=== PATIENT | female | born 1990 | race Caucasian/White ===

== ENCOUNTER 2020-07-19 11:19 | Emergency (ER) | payer BC, SELFPAY ==
--- NOTE | 2020-07-19 11:34 | ED.URI ---
HPI - URI/Sore Throat General Chief Complaint: Upper Respiratory Infection Stated Complaint: SORE THROAT/COUGH/FEVER Time Seen by Provider: 07/19/20 11:34 Source: patient and RN notes reviewed Mode of arrival: ambulatory Limitations: no limitations History of Present Illness HPI Narrative: 30-year-old female presents with concern for sore throat, scratchy throat, nasal drainage, cough, fever. Reports sore throat started 2 days ago, cough started today. 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 She denies any loss of sense of taste or smell, shortness of breath, body aches, chills, sweats. Reports exposure to a Covid patient last week. MD elicited complaint: sore throat Related Data Home Medications Medication Instructions Recorded Confirmed aripiprazole mg 07/19/20 dextroamphetamine-amphetamine PO 07/19/20 losartan 07/19/20 omeprazole 07/19/20 Allergies Allergy/AdvReac Type Severity Reaction Status Date / Time morphine Allergy Unknown Vomiting Verified 06/21/15 11:04 Review of Systems Review of Systems: Narrative: CONSTITUTIONAL: Denies malaise, chills, sweats. Reports fever. EYES: Denies visual changes, redness, or discharge. ENT: Reports rhinorrhea, sore throat. Denies congestion, sinus pain, otalgia CARDIOVASCULAR: Denies chest pain, palpitations, or edema. RESPIRATORY: Reports cough. Denies dyspnea. GASTROINTESTINAL: Denies abdominal pain, nausea, vomiting, diarrhea SKIN: Denies rash or itching. MUSCULOSKELETAL: Denies myalgia. NEUROLOGIC: Denies headache. All systems reviewed & are unremarkable except as noted in HPI and below PMFSH Family History Family History (Updated 11/10/15 @ 23:21 by DOCTOR UNKNOWN) Mother Patient's mother is in good health Father Patient's father is in good health Sibling Patient's brother is in good health Other Diabetes mellitus Hypertension Social History Social History Smoking status: Current every day smoker Second hand tobacco smoke exposure: No Smoking end date: 07/19/13 Alcohol intake: never Comments At time of signature, agree with nursing past medical, surgical, social and family history. There is no relevant family history pertinent to the presenting complaint Exam Narrative: Exam Narrative: GENERAL: Well-appearing, well-nourished, and in no acute distress. HEAD: Normocephalic EYES: PERRLA, conjunctivae clear ENT: Nares clear, turbinates erythematous, clear discharge. Mucous membranes moist. TM pearly dugan with sharp light reflex bilaterally; no tragal tenderness. Oropharynx not erythematous without lesions. Tonsils not enlarged and without exudate, no drooling, no hoarseness, no trismus, uvula midline. NECK: Supple. No lymphadenopathy CHEST: Clear to auscultation, breath sounds equal. No wheezing, rhonchi, rales, or stridor. No respiratory distress, speaks in full sentences. HEART: Regular rate and rhythm. No murmur heard. SKIN: Warm, dry, no rash. NEURO: Alert and oriented x3. PSYCH: Normal mood and affect Course Course Emergency Course: Patient is aware of diagnosis, understands and agrees to treatment plan. Anticipatory guidance given. Patient agrees to follow-up as directed and is aware of reasons to seek care at the emergency department. Portions of this record may have been created with voice recognition software Vital Signs Vital signs: Vital Signs Temperature 98.5 F 07/19/20 11:36 Pulse Rate 108 H 07/19/20 11:36 Respiratory Rate 16 07/19/20 11:36 Blood Pressure 128/85 07/19/20 11:36 Pulse Oximetry 99 07/19/20 11:36 Temperature 98.5 F 07/19/20 11:36 Pulse Rate 108 H 07/19/20 11:36 Respiratory Rate 16 07/19/20 11:36 Blood Pressure 128/85 07/19/20 11:36 Pulse Oximetry 99 07/19/20 11:36 Reviewed. Patient has been instructed to follow up with her primary care provider within the next week regarding her elevated blood pressure today. MDM - URI/Sore Throat MDM
[2020-07-19 11:36] VITALS: BP 128/85; PULSE 108; RESP 16; TEMP 36.9; O2SAT 99
== END 2020-07-19 12:01 | disposition home or self-care (01) ==
PROVIDERS: Emergency Provider Nurse Practitioner; PCP Family Medicine
DX: U07.1 COVID-19 (principal); F17.210 Nicotine dependence, cigarettes, uncomplicated; I10 Essential (primary) hypertension
CPT/HCPCS: 87081; 87426; 87880; 99213; C9803; G0463

== ENCOUNTER 2022-03-12 02:54 | Emergency (ER) | payer SELFPAY ==
[2022-03-12 03:10] VITALS: BP 149/99; PULSE 92; RESP 18; TEMP 36.2; O2SAT 99
[2022-03-12 04:05] VITALS: BP 132/93; PULSE 83; RESP 16; O2SAT 99
[2022-03-12 05:02] VITALS: BP 125/73; PULSE 75; RESP 14; O2SAT 99
--- NOTE | 2022-03-12 05:13 | ED.RECABL ---
HPI - Recheck/Abnormal Lab/Rx General Chief Complaint: Recheck/Abnormal Lab/Rx Stated Complaint: Elevated BP, 9 weeks preg Time Seen by Provider: 03/12/22 04:56 History of Present Illness HPI narrative: This is a 32-year-old female G3, P2, 9 weeks who presents to the emergency department complaining of headache and elevated blood pressure. Patient states she was at work when she noticed a dull headache. She measured her blood pressure and it was 160s over 70s. She states she took her nifedipine as prescribed and presents for evaluation. She currently states her headache is resolved Related Data Home Medications Medication Instructions Recorded Confirmed aripiprazole 5 mg tablet mg 07/19/20 12/12/20 dextroamphetamine-amphetamine ER PO 07/19/20 12/12/20 15 mg 24hr capsule,extend release losartan 25 mg tablet 07/19/20 12/12/20 omeprazole 20 mg capsule,delayed 07/19/20 12/12/20 release alprazolam 0.5 mg tablet 0.5 mg PO QHS PRN 12/12/20 12/12/20 aripiprazole 5 mg tablet (Abilify) 5 mg PO QHS 12/12/20 12/12/20 dextroamphetamine-amphetamine 10 10 mg PO DAILY 12/12/20 12/12/20 mg tablet dextroamphetamine-amphetamine 10 10 mg PO DAILY 12/12/20 12/12/20 mg tablet (Adderall) dextroamphetamine-amphetamine ER 15 mg PO DAILY 12/12/20 12/12/20 15 mg 24hr capsule,extend release (Adderall XR) divalproex 250 mg tablet,delayed 250 mg PO Q12H 12/12/20 12/12/20 release (Depakote) divalproex 250 mg tablet,extended PO 12/12/20 12/12/20 release 24 hr omeprazole 20 mg capsule,delayed 20 mg PO DAILY 12/12/20 12/12/20 release Allergies Allergy/AdvReac Type Severity Reaction Status Date / Time morphine Allergy Unknown Vomiting Verified 12/12/20 14:12 Review of Systems Review of Systems: CONSTITUTIONAL: Denies fever, chills, or sweats. EYES: Denies visual changes, redness, or discharge. ENT: Denies rhinorrhea, congestion, sore throat, or otalgia. CARDIOVASCULAR: Denies chest pain, palpitations, or edema. RESPIRATORY: Denies cough or dyspnea. GASTROINTESTINAL: Denies abdominal pain, nausea, vomiting, or diarrhea. GENITOURINARY: Denies dysuria or hematuria. SKIN: Denies rash or itching. MUSCULOSKELETAL: Denies back pain, joint pain, or myalgia. NEUROLOGIC: Headache denies numbness, dizziness, or weakness. PSYCHIATRIC: Denies anxiety or depression. [facility] Past Medical History Medical History (Updated 03/12/22 @ 05:17 by Savage Lazaro MD) GERD (gastroesophageal reflux disease) Hypertension affecting Obese Preeclampsia Family History Family History Mother Patient's mother is in good health Father Patient's father is in good health Sibling Patient's brother is in good health Other Diabetes mellitus Hypertension Social History Social History Smoking status: Current every day smoker Second hand tobacco smoke exposure: No Smoking end date: 07/19/13 Alcohol intake: never Exam Narrative: GENERAL: Well-developed, well-nourished, and in no acute distress. HEAD: Normocephalic, atraumatic. EYES: PERRLA and EOMI. ENT: Nares clear, no rhinorrhea or epistaxis. Mucous membranes moist. Oropharynx without tonsillar hypertrophy exudate or other lesions. NECK: Supple. No adenopathy or masses. No carotid bruits or JVD CHEST: Clear to auscultation. No respiratory distress. No wheezes rales or rhonchi HEART: Regular rate and rhythm. No murmur heard. Normal peripheral pulses. ABDOMEN: Soft, nontender, nondistended, normal active bowel sounds. EXTREMITIES: Normal range of motion. No edema. SKIN: Warm, dry, no rash. NEURO: No focal deficits. Alert and oriented x3. PSYCH: Normal mood and affect. Course Course Emergency Course: 05:10 - Bedside ultrasound shows an intrauterine without free abdominal fluid. Patient's blood pressure at this time is controll
== END 2022-03-12 05:21 | disposition home or self-care (01) ==
PROVIDERS: Emergency Provider Preventive Medicine Aerospace Medicine; PCP Family Medicine
DX: O13.1 Gestational [pregnancy-induced] hypertension without significant proteinuria, first trimester (principal); O99.891 Other specified diseases and conditions complicating pregnancy; R51.9 Headache, unspecified; O99.611 Diseases of the digestive system complicating pregnancy, first trimester; K21.9 Gastro-esophageal reflux disease without esophagitis; O99.211 Obesity complicating pregnancy, first trimester; E66.9 Obesity, unspecified; Z3A.09 9 weeks gestation of pregnancy; Z87.891 Personal history of nicotine dependence
CPT/HCPCS: 99281

== ENCOUNTER 2022-04-12 17:07 | Observation (INO) | payer OTHER, SELFPAY ==
[2022-04-12] MEDS: DEXTROSE 5%/LACTATED RINGERS 1,000 ML 999 ML IV CONT (17:36)
[2022-04-12] MEDS: LOPERAMIDE HCL 2 MG CAPSULE PO (17:39)
[2022-04-12] MEDS: ONDANSETRON INJ 4 MG/2 ML VIAL IV PUSH (17:39)
[2022-04-12 17:43] VITALS: BP 113/66; PULSE 81; BMI 36.3
--- NOTE | 2022-04-12 17:43 | LDADM ---
This patient, Shruti Hughes, was admitted to [facility] on 04/12/22 at 17:07. Plans for labor, pain management and were discussed with patient. Patient/family oriented to hospital policies and general routines including ID bracelet, bed and alarms, visiting hours, pain management, procedures, bathroom and other care routines, personal items, smoking policy, room service/diet and guest tray routines, infant security routines, and visiting hours. Patient/Family are encouraged to report perceived risks to care and to ask questions if they do not understand what they are told or what they should do. See OBIX for further documentation.
[2022-04-12 17:44] VITALS: PULSE 78; O2SAT 93
[2022-04-12 17:49] VITALS: PULSE 80; O2SAT 94
--- NOTE | 2022-04-12 17:54 | PC.NURSE ---
heart tones doppled. FHT 140.
[2022-04-12] MEDS: DEXTROSE 5%/LACTATED RINGERS 1,000 ML 200 ML IV CONT (18:41)
--- NOTE | 2022-04-12 20:37 | PM.IMHP ---
H&P: HPI History of Present Illness Date/Time: 04/12/22 20:37 Chief Complaint: Thirteen week gestation, nausea vomiting, diarrhea Narrative: patient is a 32-year-old female, multiparous, several hours of nausea vomiting and diarrhea. At some spotting per vagina. She has been suffering with some nausea and vomitingThroughout the 1st trimester. There was a break in the nausea vomiting but then that resumed today and is accompanied by diarrhea. She denies any chest pain or shortness of breath. She denies any fever or chills. Denies any continued cramping or vaginal bleeding. Review of Systems Review of Systems: All systems reviewed & are unremarkable except as noted in HPI and below Constitutional: Constitutional: Denies chills, Denies fatigue, Denies fever(s) and Denies weakness Eyes: Eyes: Denies blurry vision, Denies change in vision, Denies loss of peripheral vision, Denies loss of vision, Denies other visual disturbances and Denies eye pain ENT: Denies vertigo, Denies dizziness, Denies hearing loss, Denies mouth pain, Denies nasal obstruction, Denies neck mass and Denies neck pain Cardiovascular: Cardiovascular: Denies chest pain, Denies diaphoresis, Denies syncope, Denies leg edema and Denies dyspnea Respiratory: Respiratory: Denies chest congestion, Denies cough, Denies hemoptysis, Denies dyspnea and Denies wheezing Gastrointestinal: Gastrointestinal: Denies abdominal pain, Denies constipation, Denies diarrhea, Denies nausea and Denies vomiting Genitourinary: Genitourinary: Denies hematuria, Denies change in libido, Denies nocturia, Denies genital lesions, Denies flank pain and Denies urinary urgency Musculoskeletal: Musculoskeletal: Denies abnormal gait, Denies back pain, Denies myalgias, Denies arthralgias, Denies joint swelling, Denies muscle weakness and Denies neck pain Integumentary/Breasts: Skin/Breast: Denies swelling, Denies breast pain, Denies breast mass, Denies dry skin, Denies nipple discharge, Denies unusual bruising and Denies jaundice Neurologic: Denies Neuro-related abnormal movements, Denies Abnormal speech present, Denies abnormal gait, Denies behavioral changes, Denies confusion, Denies vertigo, Denies dizziness, Denies syncope, Denies loss of vision, Denies memory loss, Denies convulsions and Denies weakness Psychiatric: Psychiatric: Denies abnormal sleep pattern, Denies behavioral changes, Denies change in libido, Denies confusion, Denies depression, Denies anhedonia and Denies memory loss Endocrine: Endocrine: Reports no additional endocrine complaints, Denies change in libido and Denies fatigue Hematologic/Lymphatic: Hematologic/Lymphatic: Reports no additional hematologic/lymphatic complaints Allergic/Immunologic: Allergic/Immunologic: Reports no additional allergic/immunologic complaints and Denies wheezing PMFSH Past Medical History Medical History (Updated 04/12/22 @ 20:43 by Donnie Potts MD) GERD (gastroesophageal reflux disease) Hypertension affecting Obese Preeclampsia Family History Family History Mother Patient's mother is in good health Father Patient's father is in good health Sibling Patient's brother is in good health Other Diabetes mellitus Hypertension Social History Social History Smoking status: Current every day smoker Second hand tobacco smoke exposure: No Smoking end date: 07/19/13 Alcohol intake: never Meds Home Medications and Allergies Home Medications Medication Instructions Recorded Confirmed Type aripiprazole 5 mg tablet mg 07/19/20 12/12/20 History dextroamphetamine-amphetamine ER PO 07/19/20 12/12/20 History 15 mg 24hr capsule,extend release losartan 25 mg tablet 07/19/20 12/12/20 History omeprazole 20 mg capsule,delayed 07/19/20 12/12/20 History release alprazolam 0.5 mg tablet 0.5 mg PO QHS PRN
--- NOTE | 2022-04-12 20:40 | PC.NURSE ---
Dr. Potts at bedside. PT states that she feels nauseas and wants to go home. Delroy evaluated PT. Discharge instructions received.
--- NOTE | 2022-04-12 20:42 | PC.NURSE ---
Pt seen by Dr. Potts. Discharge orders received. This RN administered discharge instructions to PT. PT verbalized understanding. PT given opportunity to ask questions with all questions answered by Dr. Potts. PT stable at this time. PT discharged ambulatory not in active labor.
--- NOTE | 2022-05-01 20:46 | PM.OBTRLD ---
OB - Triage/Final Diagnosis Visit Information Comments/Additional reasons for admission: I have assessed the risk for this patient, Shruti Hughes, and determined that she would benefit from observation care. Final Diagnosis (1) Diarrhea: Code(s): R19.7 - Diarrhea, unspecified Status: Acute
== END 2022-04-12 20:20 | disposition home or self-care (01) ==
PROVIDERS: Admitting Provider Obstetrics & Gynecology; PCP Family Medicine; Visit Provider Obstetrics & Gynecology
DX: O21.9 Vomiting of pregnancy, unspecified (principal); O16.1 Unspecified maternal hypertension, first trimester; O26.891 Other specified pregnancy related conditions, first trimester; R19.7 Diarrhea, unspecified; O99.331 Smoking (tobacco) complicating pregnancy, first trimester; F17.200 Nicotine dependence, unspecified, uncomplicated; Z3A.13 13 weeks gestation of pregnancy
CPT/HCPCS: 96361; 96374; A9270; G0378; G0379; J2405; J7121

== ENCOUNTER 2022-06-13 16:27 | Observation (INO) | payer OTHER, SELFPAY ==
[2022-06-13 16:54] VITALS: BP 115/70; PULSE 101
[2022-06-13 17:12] VITALS: BMI 35.9
--- NOTE | 2022-06-13 17:14 | OBADM ---
This patient, Shruti Hughes, admitted to the OB room [facility] for observation. Patient/family oriented to hospital policies and general routines including ID bracelet, bed and alarms, visiting hours, pain management, procedures, bathroom and other care routines, personal items, smoking policy, room service/diet, and visiting hours. Patient/Family are encouraged to report perceived risks to care and to ask questions if they do not understand what they are told or what they should do.
--- NOTE | 2022-06-13 17:40 | PC.NURSE ---
1720-- Discussed pain medication with patient. Patient declines Flexeril at hospital, states that she will take one at home and make note of outcome. Patient reminded to contact office if pain continues. 1730-- Patient ambulates to exit with no apparent pain.
--- NOTE | 2022-07-10 21:19 | PM.OBTRLD ---
OB - Triage/Final Diagnosis Visit Information Comments/Additional reasons for admission: I have assessed the risk for this patient, Shruti Hughes, and determined that she would benefit from observation care. Final Diagnosis (1) Abdominal pain: Code(s): R10.9 - Unspecified abdominal pain Status: Acute
== END 2022-06-13 17:35 | disposition home or self-care (01) ==
PROVIDERS: Admitting Provider Obstetrics & Gynecology; PCP Family Medicine; Visit Provider Obstetrics & Gynecology
DX: O26.899 Other specified pregnancy related conditions, unspecified trimester (principal); R10.9 Unspecified abdominal pain; Z3A.00 Weeks of gestation of pregnancy not specified
CPT/HCPCS: G0378; G0379

== ENCOUNTER 2022-07-06 06:21 | Observation (INO) | payer OTHER, SELFPAY ==
[2022-07-06 06:36] VITALS: BP 120/73; PULSE 102
[2022-07-06 06:43] VITALS: BP 120/73; PULSE 102
[2022-07-06 06:45] VITALS: BP 127/70; PULSE 102
[2022-07-06 07:00] VITALS: BP 110/61; PULSE 99
[2022-07-06 07:15] VITALS: BP 109/66; PULSE 93
--- NOTE | 2022-07-06 07:35 | OBADM ---
This patient, Shruti Hughes, admitted to the OB room [facility] Post 115 for observation. Patient/family oriented to hospital policies and general routines including ID bracelet, bed and alarms, visiting hours, pain management, procedures, bathroom and other care routines, personal items, smoking policy, room service/diet, and visiting hours. Patient/Family are encouraged to report perceived risks to care and to ask questions if they do not understand what they are told or what they should do. Pt. presents with reports of ctxns since 0500 this a.m., every couple of minutes . She denies any vaginal bleeding, and LOF, and reports movement. EFM X2 applied.
[2022-07-06 07:40] LABS: Appearance Urine Clear (Clear); Bilirubin Urine Negative (Negative); Blood Urine Negative (Negative); Color Urine Yellow (Yellow); Glucose Urine UA Negative (Negative); Ketones Urine Negative (Negative); Leukocyte Esterase Ur Negative LEU/UL (Negative); Nitrate Urine Negative (Negative); Protein Urine Negative (Negative); Specific Grav Ur 1.024 (1.001-1.035); Urobilinogen Urine 0.2 mg/dL (<2.0)
[2022-07-06 07:47] LABS: Add Urine Microscopic? NO
--- NOTE | 2022-07-22 08:05 | P.PNOB_ITS ---
OB - Triage/Final Diagnosis Visit Information Comments/Additional reasons for admission: I have assessed the risk for this patient, Shruti Hughes, and determined that she would benefit from observation care. Evaluation Laboratory results: Laboratory Tests 07/06/22 06:58 Urine Color Yellow Urine Appearance Clear Urine pH 5.0 Ur Specific [place] 1.024 Urine Protein Negative Urine Glucose (UA) Negative Urine Ketones Negative Ur Blood (Man) Negative Urine Nitrate Negative Urine Bilirubin Negative Urine Urobilinogen 0.2 Leukocyte Esterase Rfl Negative Final Diagnosis (1) False labor: Code(s): O47.9 - False labor, unspecified Status: Acute
== END 2022-07-06 09:05 | disposition home or self-care (01) ==
PROVIDERS: Advanced Practice Midwife; Admitting Provider Obstetrics & Gynecology; PCP Family Medicine; Visit Provider Obstetrics & Gynecology
DX: O47.02 False labor before 37 completed weeks of gestation, second trimester (principal); Z3A.25 25 weeks gestation of pregnancy
CPT/HCPCS: 81003; G0378